=== PATIENT | female | born 1950 | race Caucasian/White ===

== ENCOUNTER 2017-09-25 07:15 | Inpatient (IN) | payer MEDICARE, OTHER ==
[~2017-09-25 07:15] MED LIST: MORPHINE SULFATE 15 MG TABLET.SA PO PRN; RINGER'S SOLUTION,LACTATED 1,000 ML IV PRN; ROPIVACAINE HCL/PF 100 MG, KETOROLAC TROMETHAMINE 30 MG, EPINEPHrine 0.2 MG in NORMAL S... IJ PRN; ceFAZolin SODIUM 1 GM VIAL IV PRN
[2017-09-25] MEDS ORDERED: RINGER'S SOLUTION,LACTATED 1,000 ML IV ONE ×4 (10:15→12:09)
[2017-09-25] MEDS: TRANEXAMIC ACID 1,000 MG in NORMAL SALINE 100 ML IV PRN ×2 (11:07→12:12)
[2017-09-25] MEDS ORDERED: PROMETHAZINE HCL 5 MG in DEXTROSE 5 % IN WATER 50 ML IV PRN ×2 (12:45)
[2017-09-25] MEDS ORDERED: diphenhydrAMINE HCL 50 MG/ML VIAL IV PRN (12:45)
[2017-09-25] MEDS ORDERED: HYDROmorphone HCL 1 MG/ML DISP.SYRIN IV PRN (12:45)
[2017-09-25] MEDS ORDERED: ZOLPIDEM TARTRATE 5 MG TABLET PO PRN (12:45)
[2017-09-25] MEDS ORDERED: MAG HYDROX/ALUMINUM HYD/SIMETH 30 ML UDC PO PRN (12:45)
--- NOTE | 2017-09-25 12:49 | POSTOP NO ---
Date of Surgery: 09/25/17 Anesthesia: Spinal, Local Patient Tolerated the Procedure: Well Post Operative Diagnosis/Procedures: Steam Pressure Chamber Operator: Jr Kikr PA-C Post-operative Diagnosis: Right hip degenerative joint disease Finding: Above Procedure: Right total hip arthroplasty Estimated Blood Loss: 100 ml Specimens: Bone for disposal
--- NOTE | 2017-09-25 12:50 | OR ---
Operative Report - Dictated Report Narrative: Date: 09/25/2017 Preoperative diagnosis: Right hip degenerative joint disease. Postoperative diagnosis: Right hip degenerative joint disease. Procedure: Right Total hip arthroplasty. Surgeon: Paresh Jo M.D. Washing Machine Repairer: Jr Kirk PA-C Anesthesia: Spinal and local periarticular joint injection. Complications: None Specimens: Bone for disposal. Estimated blood loss: 100 milliliters. Retained implants: Depuy [place] size 4 femoral stem standard offset. Size 52 millimeter ouside diameter 3-hole [place] Gription acetabular cup. 52 millimeter outside by 36 millimeter inside diameter highly cross-linked acetabular liner. 36 millimeter diameter +8.5 millimeter cobalt chromium femoral head. Cancellous 6.5mm screw 30 millimeter length Indications: Mrs. Gore is a 66-year-old female who has had long-standing right hip pain and arthrosis. This patient was followed in my clinic for period of time with significant complaints of right hip pain consistent with arthritic changes. She failed conservative measures including but not limited to activity modification, passage of time, medications, and other conservative measures. Patient wished to proceed with surgical treatment. The risks, benefits, and alternatives were discussed in clinic. The risks of , blood clots, bleeding, infection, nerve/tendon blood vessel/ injury, malposition of components, dislocation and/or instability of joint, intraoperative fracture, postoperative limited range of motion, persistent pain, failure of components, and need for additional procedures. Patient wished to proceed. Consent was obtained after answering all questions. Procedure: After marking the correct extremity on the floor, the patient was taken to the operating room. A timeout was performed. IV antibiotics consisting of Ancef were administered prior to the procedure. A spinal anesthetic was induced by anesthesia. A Wilks catheter was inserted. The patient was then transitioned to a lateral position on a well-padded pegboard. An axillary roll was placed. The head was in neutral position. The non- operative down leg was well-padded with SCD and JIE hose in place. The arms were supported and padded to protect from any undue pressure on the bony prominences and nerves. A well-padded anterior and posterior pelvic and chest posts were secured in order to maintain a stable position of the pelvis. This was placed so that the pelvis was perpendicular to the floor. The body was in line with the pelvis. Once it was felt that we had protected all the bony prominences and the patient was well secured with a safety belt as well, the leg was pre-scrubbed with alcohol, prepped and draped in a standard sterile fashion. A standard anterior lateral hip incision was marked out over the greater trochanter. Ioban drapes were then placed. The skin incision was then made. Sharp dissection with a scalpel utilizing cautery for hemostasis was carried out down to the gluteus and iliotibial band fascia. This was split in line with the skin incision. The greater trochanter bursa was excised. The anterior and posterior margins of the abductor tendon were identified. The anterior 1/2-1/3 of the tendon was tagged and reflected off the greater trochanter leaving a sleeve of tendon for repair at the completion of the case. This exposed the underlying hip joint capsule. A limb length stitch was placed in the skin and referencedd off a karena on the greater trochanter for evaluation of intraoperative limb lengths. An inverted T-type capsulotomy was made extending this up to the brim of the acetabulum. Using Homans to assist with elevation of the soft tissues off the anterior, superior, and inferior aspects of the femoral neck, the hip was then placed in a figure 4 position and the femoral head was dislocated. With the leg in an externally rotated and adducted position, the cutting flag was utilized in order to karena for a standard femoral neck cut approximately a fingerbreadth above the level of the lesser trochanter. This was done with reference to pre-operative films and overall alignment. This was done while protecting the surrounding soft tissues with Homans. The femoral head was then removed and sized for guidance on preparation of the acetabulum. It was noted that there was loss of articular cartilage on both the femoral head and weightbearing portions of the acetabulum. We then returned the leg to the table and turned our attention to the acetabulum. While protecting the surrounding soft tissues, the labrum and remaining tissue in the fovea were excised using a scalpel and cautery. A series of reamers up to size 52 millimeter were utilized to prepare the acetabulum. The final reamer had good purchase and exposed the bleeding subchondral bone. The acetabulum was then thoroughly irrigated ensuring that all bony and cartilaginous materials were removed, and the final acetabular shell was impacted into place. This was placed in approximately 45 degrees of abduction and 20 degrees of anteversion utilizing the outrigger and body axis for alignment. This had a good press fit. 1 6.5mm cancellous screw was placed in the superior posterior quadrant of the acetabulum. The shell was then thoroughly irrigated and the final polyethylene was impacted into place ensuring that it seated completely. This was then protected with a sponge while we returned our attention to the femur. With the leg in a figure 4 position, utilizing Homans for soft tissue protection , a box cutting osteotome, followed by Charnley awl, followed by serial reamers and broaches were utilized in order to prepare the femur. It was found that a size 4 broach gave good axial and rotational stability. The calcar reamer was utilized in order to clean up the cut edges. The proximal femur was visualized to ensure that there were no signs of fracture. A series of heads and necks were trialed. It was found that a standard offset neck and a + 8.5 femoral head gave good overall stability. There was minimal longitudinal instability. With the leg in the position of sleep, the femoral head was well covered. Hip range of motion was able to reach full extension and external rotation to greater than 75 degrees prior to impingement along the posterior acetabulum. The hip was able to be flexed to greater than 90 degrees with internal rotation greater than 60 degrees prior to anterior impingement. The limb lengths were near equal based on comparison to the contralateral side and the prior placed limb length stitch. At this point it was felt these were the appropriately sized femoral components as well as neck and femoral head. The trial implants were removed. The femur was thoroughly irrigated. The final implants were impacted into place, and the hip was reduced. After ensuring that there was no damage to the proximal femur , the standard periarticular joint injection of ropivacaine, Toradol, and epinephrine were injected into the joint capsule and surrounding soft tissues. Anesthesia then administered intravenous tranexamic acid. The capsule was repaired with a single interrupted #1 Vicryl. The abductor tendon was repaired to the greater trochanter utilizing #5 Ethibond through drill holes. This was oversewn with #1 Vicryl. The fascia was closed with interrupted #1 Vicryl. The wounds were thoroughly irrigated as we closed in layers. The deep and subcutaneous fat layers were closed with 0 and 3-0 Vicryl respectively. The subcutaneous tissue was closed with a running 3-0 Vicryl and the skin with running 3-0 Monocryl subcutaneous and Prineo Dermabond dressing. All sponge, needle, blade, and instrument counts were correct prior to closing the wounds. Sterile dressings consisting of 4 x 4's, and tape were applied. The patient was awoken and transferred to her hospital bed and then to the postanesthesia care unit in stable condition. Postoperative condition: The plan is to admit to the medical/surgical inpatient floor postoperatively. There will be a projected 2 to 4 day hospital stay. Postoperatively 24 hours of IV antibiotics, pain control, physical therapy, occupational therapy, and medical comanagement will be utilized. Patient will be weightbearing as tolerated with anterior hip precautions. Postoperative films will be obtained in the recovery room.
[2017-09-25] MEDS: KETOROLAC TROMETHAMINE 15 MG/ML VIAL IV SCH ×2 (14:02→18:37)
[2017-09-25] MEDS: ceFAZolin SODIUM 1 GM in DEXTROSE 5 % IN WATER 100 ML IV SCH ×4 (14:07→20:37)
[2017-09-25] MEDS: ALPRAZolam 0.5 MG TABLET PO SCH ×2 (14:07→17:34)
[2017-09-25] MEDS: RINGER'S SOLUTION,LACTATED 1,000 ML IV PRN (15:42)
[2017-09-25] MEDS: metFORMIN HCL 500 MG TABLET PO SCH (17:34)
[2017-09-25] MEDS: oxyCODONE HCL/ACETAMINOPHEN 1 TAB TABLET PO PRN ×2 (17:34→22:58)
[2017-09-25] MEDS: MORPHINE SULFATE 15 MG TABLET.SA PO SCH (20:39)
[2017-09-25] MEDS: METOPROLOL SUCCINATE 100 MG TABLET.SA PO SCH (20:40)
[2017-09-25] MEDS: CHOLECALCIFEROL 400 UNIT TABLET PO SCH (20:41)
[2017-09-25] MEDS: CALCIUM CARBONATE 500 MG TAB.CHEW PO SCH (20:41)
[2017-09-25] MEDS: busPIRone HCL 5 MG TABLET PO SCH (20:42)
[2017-09-25] MEDS: ROSUVASTATIN CALCIUM 20 MG TABLET PO SCH (20:44)
[2017-09-25] MEDS: SENNOSIDES/DOCUSATE SODIUM 1 TAB TABLET PO SCH (20:45)
[2017-09-25] MEDS: Cyclosporine [Restasis] OP SCH (20:46)
[2017-09-25] MEDS: INSULIN GLARGINE,HUM.REC.ANLOG 100 UNITS/ML VIAL SC SCH (20:46)
[2017-09-25] MEDS ORDERED: GLIMEPIRIDE 4 MG TABLET PO SCH (21:00)
[2017-09-26] MEDS: KETOROLAC TROMETHAMINE 15 MG/ML VIAL IV SCH ×4 (01:04→18:58)
[2017-09-26] MEDS: RINGER'S SOLUTION,LACTATED 1,000 ML IV PRN (01:13)
[2017-09-26] MEDS: ceFAZolin SODIUM 1 GM in DEXTROSE 5 % IN WATER 100 ML IV SCH ×2 (03:05)
[2017-09-26 05:41] LABS: Hematocrit 30.4 % (37.0-47.0); Hemoglobin 9.1 gm/dL (12.5-16.0); Mean Cell Volume 82.2 fl (78-100); Mean Corpuscular Hemoglobin 24.6 pg (27-31); Mean Corpuscular Hgb Conc 29.9 g/dl (32-36); Mean Platelet Volume 9.8 fl (6.0-9.5); Platelet Count 185 K/mm3 (150-450); Red Cell Distribution Width 17.2 % (11.5-14.0); White Blood Count 7.1 K/mm3 (4.0-10.5)
[2017-09-26 05:46] LABS: Anion Gap 9.8 mmol/L (6.8-13.8); BUN/Creatinine Ratio 18.3 (9.0-21.6); Calcium * 8.1 mg/dL (7.9-10.9); Carbon Dioxide 29.4 mmol/L (24-32.6); Estimated Creat Clear 61.8; Potassium 4.2 mmol/L (3.4-4.6)
[2017-09-26] MEDS: oxyCODONE HCL/ACETAMINOPHEN 1 TAB TABLET PO PRN ×2 (06:58→16:37)
[2017-09-26] MEDS: PANTOPRAZOLE SODIUM 40 MG TABLET.EC PO SCH (06:59)
[2017-09-26] MEDS: GLIMEPIRIDE 4 MG TABLET PO SCH ×2 (09:17→16:34)
[2017-09-26] MEDS: sitaGLIPtin PHOSPHATE 50 MG TABLET PO SCH (09:17)
[2017-09-26] MEDS: HYDROCHLOROTHIAZIDE 12.5 MG CAPSULE PO SCH (09:17)
[2017-09-26] MEDS: metFORMIN HCL 500 MG TABLET PO SCH ×2 (09:18→16:34)
[2017-09-26] MEDS: busPIRone HCL 5 MG TABLET PO SCH ×2 (09:18→20:58)
[2017-09-26] MEDS: CHOLECALCIFEROL 400 UNIT TABLET PO SCH ×2 (09:19→21:01)
[2017-09-26] MEDS: ENALAPRIL MALEATE 5 MG TABLET PO SCH (09:19)
[2017-09-26] MEDS: CALCIUM CARBONATE 500 MG TAB.CHEW PO SCH ×2 (09:20→21:01)
[2017-09-26] MEDS: Cyclosporine [Restasis] OP SCH ×2 (09:25→21:02)
[2017-09-26] MEDS: MORPHINE SULFATE 15 MG TABLET.SA PO SCH ×2 (09:27→21:08)
--- NOTE | 2017-09-26 10:00 | PN ---
Subjective - Date and Time Seen Date: 09/26/17 Time: 09:56 Subjective Narrative: Subjective: Reports no concerns. Was able to take a few steps in the room with therapy. Pain is well-controlled. Voiding without any complications. Tolerating by mouth intake. Denies any nausea or vomiting. Denies calf pain. Slept well. Physical exam: Alert and oriented to person, place and time Right lower Extremity: Palpable dorsalis pedis pulse. Sensation grossly intact to light touch. Dressings clean and dry. Able to flex and extend ankle and toes. No excessive drainage. Calf and thigh are soft and nontender. Assessment: Postop day 1 status post right total hip arthroplasty. Plan: Due to the need for pain control, post-operative limited mobility, protection of the surgical site and joint, monitoring of the wound, and the management of chronic medical conditions, she requires continued inpatient care. Continue with physical and occupational therapy weightbearing as tolerated. Anterior hip precautions Continue with anticoagulation. 24 hours postoperative prophylactic antibiotics. Pain control with goal to rely on oral medications. Continue bowel regimen. Will need 6 weeks with walker or assitive device to protect joint while ambulating during the recovery process. Discharge planning - due to her home situation as well as suspected need for additional therapy we are looking into placement at [facility]. Discontinue Wilks catheter. Repeat hemogram and BMP in a.m. in order to monitor for postoperative anemia and electrolyte imbalance. Objective - Vitals Vitals: Last Vital Signs Temp 36.0 C L 09/26/17 06:25 Pulse 65 09/26/17 09:19 Resp 20 09/26/17 06:25 BP 102/54 09/26/17 09:19 Pulse Ox 94 09/26/17 06:25 - Abnormal Lab Findings Abnormal Lab Findings: Abnormal Lab Results 09/26/17 09/26/17 Range/Units 05:10 05:10 RBC 3.70 L (4.2-5.4) M/mm3 Hgb 9.1 L (12.5-16.0) gm/dL Hct 30.4 L (37.0-47.0) % MCH 24.6 L (27-31) pg MCHC 29.9 L (32-36) g/dl RDW 17.2 H (11.5-14.0) % MPV 9.8 H (6.0-9.5) fl Random Glucose 156 H (70-110) mg/dL Cauti Physician Documentation - Urinary Catheter Management Urethral (Wilks) Urethral Indwelling: No Date of Insertion: 09/25/17 Date of Removal: 09/26/17 Time of Removal: 07:10 Assessment/Plan - Problems/Diagnosis (1) Status post total hip replacement, right Problem: Acute (2) Acute blood loss anemia Problem: Acute (3) Diabetes mellitus type 2 in nonobese Problem: Chronic (4) Anxiety Problem: Chronic (5) CAD (coronary artery disease) Problem: Chronic Qualifiers: [place] vs. transplanted heart: [place] heart (6) GERD (gastroesophageal reflux disease) Problem: Chronic Qualifiers: Esophagitis presence: without esophagitis Qualified Code(s): K21.9 - Gastro -esophageal reflux disease without esophagitis (7) Hyperlipemia Problem: Chronic Qualifiers: Hyperlipidemia type: unspecified Qualified Code(s): E78.5 - Hyperlipidemia , unspecified (8) Hypertension Problem: Chronic Qualifiers: Hypertension type: unspecified Qualified Code(s): I10 - Essential (primary ) hypertension (9) Hypothyroid Problem: Chronic Qualifiers: Hypothyroidism type: unspecified Qualified Code(s): E03.9 - Hypothyroidism , unspecified (10) History of [place] (myocardial infarction) Problem: Chronic (11) OCD (obsessive compulsive disorder) Problem: Chronic Qualifiers: Obsessive-compulsive disorder type: unspecified Qualified Code(s): F42.9 - Obsessive-compulsive disorder, unspecified
[2017-09-26] MEDS: ALPRAZolam 0.5 MG TABLET PO SCH ×3 (11:46→18:17)
[2017-09-26] MEDS: ENOXAPARIN SODIUM 40 MG/0.4 ML SYRG SC SCH (11:51)
[2017-09-26] MEDS: ONDANSETRON HCL/PF 2 MG/ML VIAL IV PRN (13:51)
[2017-09-26] MEDS: ROSUVASTATIN CALCIUM 20 MG TABLET PO SCH (20:56)
[2017-09-26] MEDS: INSULIN GLARGINE,HUM.REC.ANLOG 100 UNITS/ML VIAL SC SCH (20:57)
[2017-09-26] MEDS: SENNOSIDES/DOCUSATE SODIUM 1 TAB TABLET PO SCH (20:59)
[2017-09-26] MEDS: METOPROLOL SUCCINATE 100 MG TABLET.SA PO SCH (21:00)
[2017-09-27] MEDS: KETOROLAC TROMETHAMINE 15 MG/ML VIAL IV SCH ×2 (00:39→06:43)
[2017-09-27] MEDS: oxyCODONE HCL/ACETAMINOPHEN 1 TAB TABLET PO PRN ×2 (00:57→19:39)
[2017-09-27 06:40] LABS: Hemoglobin 9.1 gm/dL (12.5-16.0); Mean Cell Volume 81.4 fl (78-100); Mean Corpuscular Hemoglobin 23.9 pg (27-31); Mean Corpuscular Hgb Conc 29.4 g/dl (32-36); Mean Platelet Volume 9.4 fl (6.0-9.5); Platelet Count 166 K/mm3 (150-450); Red Blood Count 3.81 M/mm3 (4.2-5.4); Red Cell Distribution Width 17.2 % (11.5-14.0); White Blood Count 6.9 K/mm3 (4.0-10.5)
[2017-09-27] MEDS: ONDANSETRON HCL/PF 2 MG/ML VIAL IV PRN (06:43)
[2017-09-27] MEDS: PANTOPRAZOLE SODIUM 40 MG TABLET.EC PO SCH (06:50)
[2017-09-27] MEDS: GLIMEPIRIDE 4 MG TABLET PO SCH ×2 (06:50→18:03)
[2017-09-27 06:59] LABS: Anion Gap 9.8 mmol/L (6.8-13.8); BUN/Creatinine Ratio 14.1 (9.0-21.6); Calcium * 8.6 mg/dL (7.9-10.9); Carbon Dioxide 29.2 mmol/L (24-32.6); Estimated Creat Clear 59.6
[2017-09-27] MEDS: MAGNESIUM HYDROXIDE 30 ML UDC PO PRN (08:57)
[2017-09-27] MEDS: busPIRone HCL 5 MG TABLET PO SCH ×2 (09:59→20:15)
[2017-09-27] MEDS: metFORMIN HCL 500 MG TABLET PO SCH ×2 (09:59→18:02)
[2017-09-27] MEDS: HYDROCHLOROTHIAZIDE 12.5 MG CAPSULE PO SCH (10:00)
[2017-09-27] MEDS: CALCIUM CARBONATE 500 MG TAB.CHEW PO SCH ×2 (10:00→20:16)
[2017-09-27] MEDS: sitaGLIPtin PHOSPHATE 50 MG TABLET PO SCH (10:01)
[2017-09-27] MEDS: CHOLECALCIFEROL 400 UNIT TABLET PO SCH ×2 (10:01→20:15)
[2017-09-27] MEDS: ENALAPRIL MALEATE 5 MG TABLET PO SCH (10:01)
[2017-09-27] MEDS: MORPHINE SULFATE 15 MG TABLET.SA PO SCH ×2 (10:08→20:29)
[2017-09-27] MEDS: ALPRAZolam 0.5 MG TABLET PO SCH ×3 (10:08→18:06)
[2017-09-27] MEDS: Cyclosporine [Restasis] OP SCH ×2 (10:08→20:16)
[2017-09-27] MEDS: ENOXAPARIN SODIUM 40 MG/0.4 ML SYRG SC SCH (12:03)
--- NOTE | 2017-09-27 14:47 | PN ---
Subjective - Date and Time Seen Date: 09/27/17 Time: 14:46 Subjective Narrative: Subjective: Reports no concerns. Was able to walk in the lozoya some with therapy. Pain is well-controlled. Voiding without any complications. Tolerating by mouth intake. Denies any nausea or vomiting. Denies calf pain. Slept well. Physical exam: Alert and oriented to person, place and time Right lower Extremity: Palpable dorsalis pedis pulse. Sensation grossly intact to light touch. Dressings clean and dry. Able to flex and extend ankle and toes. No excessive drainage. Calf and thigh are soft and nontender. Assessment: Postop day 2 status post right total hip arthroplasty. Plan: Due to the need for pain control, post-operative limited mobility, protection of the surgical site and joint, monitoring of the wound, and the management of chronic medical conditions, she requires continued inpatient care. Continue with physical and occupational therapy weightbearing as tolerated. Anterior hip precautions Continue with anticoagulation. Pain control with goal to rely on oral medications. Continue bowel regimen. Will need 6 weeks with walker or assitive device to protect joint while ambulating during the recovery process. Discharge planning - due to her home situation as well as suspected need for additional therapy we are looking into placement at SNF. We are awaiting authorization and bed availability. Due to medicare rules tomorrow would be soonest. Objective - Vitals Vitals: Last Vital Signs Temp 36.7 C 09/27/17 06:41 Pulse 74 09/27/17 10:55 Resp 18 09/27/17 10:55 BP 130/49 09/27/17 10:55 Pulse Ox 100 09/27/17 10:55 - Abnormal Lab Findings Abnormal Lab Findings: Abnormal Lab Results 09/27/17 09/27/17 Range/Units 06:10 06:10 RBC 3.81 L (4.2-5.4) M/mm3 Hgb 9.1 L (12.5-16.0) gm/dL Hct 31.0 L (37.0-47.0) % MCH 23.9 L (27-31) pg MCHC 29.4 L (32-36) g/dl RDW 17.2 H (11.5-14.0) % Random Glucose 119 H (70-110) mg/dL Cauti Physician Documentation - Urinary Catheter Management Urethral (Wilks) Urethral Indwelling: No Date of Insertion: 09/25/17 Date of Removal: 09/26/17 Time of Removal: 07:10 Assessment/Plan - Problems/Diagnosis (1) Status post total hip replacement, right Problem: Acute (2) Acute blood loss anemia Problem: Acute (3) Diabetes mellitus type 2 in nonobese Problem: Chronic (4) Anxiety Problem: Chronic (5) CAD (coronary artery disease) Problem: Chronic Qualifiers: [place] vs. transplanted heart: [place] heart (6) GERD (gastroesophageal reflux disease) Problem: Chronic Qualifiers: Esophagitis presence: without esophagitis Qualified Code(s): K21.9 - Gastro -esophageal reflux disease without esophagitis (7) Hyperlipemia Problem: Chronic Qualifiers: Hyperlipidemia type: unspecified Qualified Code(s): E78.5 - Hyperlipidemia , unspecified (8) Hypertension Problem: Chronic Qualifiers: Hypertension type: unspecified Qualified Code(s): I10 - Essential (primary ) hypertension (9) Hypothyroid Problem: Chronic Qualifiers: Hypothyroidism type: unspecified Qualified Code(s): E03.9 - Hypothyroidism , unspecified (10) History of [place] (myocardial infarction) Problem: Chronic (11) OCD (obsessive compulsive disorder) Problem: Chronic Qualifiers: Obsessive-compulsive disorder type: unspecified Qualified Code(s): F42.9 - Obsessive-compulsive disorder, unspecified
[2017-09-27] MEDS: METOPROLOL SUCCINATE 100 MG TABLET.SA PO SCH (20:15)
[2017-09-27] MEDS: ROSUVASTATIN CALCIUM 20 MG TABLET PO SCH (20:15)
[2017-09-27] MEDS: SENNOSIDES/DOCUSATE SODIUM 1 TAB TABLET PO SCH (20:15)
[2017-09-27] MEDS: INSULIN GLARGINE,HUM.REC.ANLOG 100 UNITS/ML VIAL SC SCH (20:17)
[2017-09-28] MEDS: ONDANSETRON HCL/PF 2 MG/ML VIAL IV PRN (07:03)
[2017-09-28] MEDS: GLIMEPIRIDE 4 MG TABLET PO SCH ×2 (07:26→17:11)
[2017-09-28] MEDS: PANTOPRAZOLE SODIUM 40 MG TABLET.EC PO SCH (07:26)
[2017-09-28] MEDS: ALPRAZolam 0.5 MG TABLET PO SCH ×3 (09:11→17:11)
[2017-09-28] MEDS: MORPHINE SULFATE 15 MG TABLET.SA PO SCH ×2 (09:11→20:28)
[2017-09-28] MEDS: busPIRone HCL 5 MG TABLET PO SCH ×2 (09:11→20:29)
[2017-09-28] MEDS: HYDROCHLOROTHIAZIDE 12.5 MG CAPSULE PO SCH (09:12)
[2017-09-28] MEDS: ENALAPRIL MALEATE 5 MG TABLET PO SCH (09:12)
[2017-09-28] MEDS: CALCIUM CARBONATE 500 MG TAB.CHEW PO SCH ×2 (09:12→20:31)
[2017-09-28] MEDS: sitaGLIPtin PHOSPHATE 50 MG TABLET PO SCH (09:12)
[2017-09-28] MEDS: CHOLECALCIFEROL 400 UNIT TABLET PO SCH ×2 (09:13→20:31)
[2017-09-28] MEDS: metFORMIN HCL 500 MG TABLET PO SCH ×2 (09:13→17:11)
[2017-09-28] MEDS: Cyclosporine [Restasis] OP SCH ×2 (09:14→20:31)
[2017-09-28] MEDS: ENOXAPARIN SODIUM 40 MG/0.4 ML SYRG SC SCH (10:45)
[2017-09-28] MEDS: ACETAMINOPHEN 500 MG TABLET PO PRN (13:12)
[2017-09-28] MEDS: MAGNESIUM HYDROXIDE 30 ML UDC PO PRN (13:13)
--- NOTE | 2017-09-28 14:31 | PN ---
Subjective - Date and Time Seen Date: 09/28/17 Time: 14:29 Subjective Narrative: Subjective: Reports no concerns. Walked in the lozoya with therapy. Pain is well -controlled. Voiding without any complications. Tolerating by mouth intake. Denies any nausea or vomiting. Denies calf pain. Slept well. Physical exam: Alert and oriented to person, place and time Right lower Extremity: Palpable dorsalis pedis pulse. Sensation grossly intact to light touch. Dressings clean and dry. Able to flex and extend ankle and toes. No excessive drainage. Calf and thigh are soft and nontender. Assessment: Postop day 3 status post right total hip arthroplasty. Plan: Due to the need for pain control, post-operative limited mobility, protection of the surgical site and joint, monitoring of the wound, and the management of chronic medical conditions, she requires continued inpatient care. Continue with physical and occupational therapy weightbearing as tolerated. Anterior hip precautions Continue with anticoagulation. Pain control with goal to rely on oral medications. Continue bowel regimen. Will need 6 weeks with walker or assitive device to protect joint while ambulating during the recovery process. Discharge planning - due to her home situation as well as suspected need for additional therapy we are planning on placement at SNF. We are awaiting authorization and bed availability. Likely saturday Objective - Vitals Vitals: Last Vital Signs Temp 36.8 C 09/28/17 10:30 Pulse 84 09/28/17 10:30 Resp 18 09/28/17 10:30 BP 148/56 09/28/17 10:30 Pulse Ox 98 09/28/17 10:30 Cauti Physician Documentation - Urinary Catheter Management Urethral (Wilks) Urethral Indwelling: No Date of Insertion: 09/25/17 Time of Insertion: 10:45 Date of Removal: 09/26/17 Time of Removal: 07:10 Assessment/Plan - Problems/Diagnosis (1) Status post total hip replacement, right Problem: Acute (2) Acute blood loss anemia Problem: Acute (3) Diabetes mellitus type 2 in nonobese Problem: Chronic (4) Anxiety Problem: Chronic (5) CAD (coronary artery disease) Problem: Chronic Qualifiers: [place] vs. transplanted heart: [place] heart (6) GERD (gastroesophageal reflux disease) Problem: Chronic Qualifiers: Esophagitis presence: without esophagitis Qualified Code(s): K21.9 - Gastro -esophageal reflux disease without esophagitis (7) Hyperlipemia Problem: Chronic Qualifiers: Hyperlipidemia type: unspecified Qualified Code(s): E78.5 - Hyperlipidemia , unspecified (8) Hypertension Problem: Chronic Qualifiers: Hypertension type: unspecified Qualified Code(s): I10 - Essential (primary ) hypertension (9) Hypothyroid Problem: Chronic Qualifiers: Hypothyroidism type: unspecified Qualified Code(s): E03.9 - Hypothyroidism , unspecified (10) History of [place] (myocardial infarction) Problem: Chronic (11) OCD (obsessive compulsive disorder) Problem: Chronic Qualifiers: Obsessive-compulsive disorder type: unspecified Qualified Code(s): F42.9 - Obsessive-compulsive disorder, unspecified
[2017-09-28] MEDS: ROSUVASTATIN CALCIUM 20 MG TABLET PO SCH (20:28)
[2017-09-28] MEDS: SENNOSIDES/DOCUSATE SODIUM 1 TAB TABLET PO SCH (20:29)
[2017-09-28] MEDS: METOPROLOL SUCCINATE 100 MG TABLET.SA PO SCH (20:29)
[2017-09-28] MEDS: INSULIN GLARGINE,HUM.REC.ANLOG 100 UNITS/ML VIAL SC SCH (20:33)
[2017-09-29] MEDS: PANTOPRAZOLE SODIUM 40 MG TABLET.EC PO SCH (07:23)
[2017-09-29] MEDS: GLIMEPIRIDE 4 MG TABLET PO SCH ×2 (07:23→17:18)
[2017-09-29] MEDS: ENALAPRIL MALEATE 5 MG TABLET PO SCH (08:53)
[2017-09-29] MEDS: ALPRAZolam 0.5 MG TABLET PO SCH ×3 (08:53→17:18)
[2017-09-29] MEDS: sitaGLIPtin PHOSPHATE 50 MG TABLET PO SCH (08:53)
[2017-09-29] MEDS: metFORMIN HCL 500 MG TABLET PO SCH ×2 (08:53→17:18)
[2017-09-29] MEDS: CHOLECALCIFEROL 400 UNIT TABLET PO SCH ×2 (08:53→20:57)
[2017-09-29] MEDS: HYDROCHLOROTHIAZIDE 12.5 MG CAPSULE PO SCH (08:54)
[2017-09-29] MEDS: CALCIUM CARBONATE 500 MG TAB.CHEW PO SCH ×2 (08:54→20:59)
[2017-09-29] MEDS: busPIRone HCL 5 MG TABLET PO SCH ×2 (08:58→20:57)
[2017-09-29] MEDS: MORPHINE SULFATE 15 MG TABLET.SA PO SCH ×2 (08:58→20:59)
[2017-09-29] MEDS: Cyclosporine [Restasis] OP SCH ×2 (08:59→20:59)
[2017-09-29] MEDS: ENOXAPARIN SODIUM 40 MG/0.4 ML SYRG SC SCH (12:49)
--- NOTE | 2017-09-29 16:39 | PN ---
Subjective - Date and Time Seen Date: 09/29/17 Time: 16:38 Subjective Narrative: Subjective: Reports no concerns. Walked in the lozoya with therapy. Pain is well -controlled. Awaiting transfer tomorrow. Physical exam: Alert and oriented to person, place and time Right lower Extremity: Palpable dorsalis pedis pulse. Sensation grossly intact to light touch. Wound benign. No excessive drainage. Calf and thigh are soft and nontender. Assessment: Postop day 4 status post right total hip arthroplasty. Plan: Due to the need for pain control, post-operative limited mobility, protection of the surgical site and joint, monitoring of the wound, and the management of chronic medical conditions, she requires continued inpatient care. Continue with physical and occupational therapy weightbearing as tolerated. Anterior hip precautions Continue with anticoagulation. Pain control with goal to rely on oral medications. Continue bowel regimen. Will need 6 weeks with walker or assitive device to protect joint while ambulating during the recovery process. Discharge planning - due to her home situation as well as suspected need for additional therapy we are planning on placement at SNF. We are awaiting authorization and bed availability. Plan tomorrow. Objective - Vitals Vitals: Last Vital Signs Temp 37.3 C 09/29/17 14:57 Pulse 84 09/29/17 14:57 Resp 20 09/29/17 14:57 BP 113/54 09/29/17 14:57 Pulse Ox 98 09/29/17 14:57 Cauti Physician Documentation - Urinary Catheter Management Urethral (Wilks) Urethral Indwelling: No Date of Insertion: 09/25/17 Time of Insertion: 10:45 Date of Removal: 09/26/17 Time of Removal: 07:10 Assessment/Plan - Problems/Diagnosis (1) Status post total hip replacement, right Problem: Acute (2) Acute blood loss anemia Problem: Acute (3) Diabetes mellitus type 2 in nonobese Problem: Chronic (4) Anxiety Problem: Chronic (5) CAD (coronary artery disease) Problem: Chronic Qualifiers: [place] vs. transplanted heart: [place] heart (6) GERD (gastroesophageal reflux disease) Problem: Chronic Qualifiers: Esophagitis presence: without esophagitis Qualified Code(s): K21.9 - Gastro -esophageal reflux disease without esophagitis (7) Hyperlipemia Problem: Chronic Qualifiers: Hyperlipidemia type: unspecified Qualified Code(s): E78.5 - Hyperlipidemia , unspecified (8) Hypertension Problem: Chronic Qualifiers: Hypertension type: unspecified Qualified Code(s): I10 - Essential (primary ) hypertension (9) Hypothyroid Problem: Chronic Qualifiers: Hypothyroidism type: unspecified Qualified Code(s): E03.9 - Hypothyroidism , unspecified (10) History of [place] (myocardial infarction) Problem: Chronic (11) OCD (obsessive compulsive disorder) Problem: Chronic Qualifiers: Obsessive-compulsive disorder type: unspecified Qualified Code(s): F42.9 - Obsessive-compulsive disorder, unspecified
[2017-09-29] MEDS: MAGNESIUM HYDROXIDE 30 ML UDC PO PRN (17:18)
[2017-09-29] MEDS: ONDANSETRON HCL/PF 2 MG/ML VIAL IV PRN (18:44)
[2017-09-29] MEDS: ROSUVASTATIN CALCIUM 20 MG TABLET PO SCH (20:57)
[2017-09-29] MEDS: METOPROLOL SUCCINATE 100 MG TABLET.SA PO SCH (20:58)
[2017-09-29] MEDS: SENNOSIDES/DOCUSATE SODIUM 1 TAB TABLET PO SCH (20:58)
[2017-09-29] MEDS: INSULIN GLARGINE,HUM.REC.ANLOG 100 UNITS/ML VIAL SC SCH (21:02)
[2017-09-29] MEDS: ACETAMINOPHEN 500 MG TABLET PO PRN ×2 (23:02)
[2017-09-30 06:53] VITALS: BP 120/68
[2017-09-30] MEDS: PANTOPRAZOLE SODIUM 40 MG TABLET.EC PO SCH (07:24)
[2017-09-30] MEDS: GLIMEPIRIDE 4 MG TABLET PO SCH (07:24)
[2017-09-30] MEDS: busPIRone HCL 5 MG TABLET PO SCH (08:48)
[2017-09-30] MEDS: Cyclosporine [Restasis] OP SCH (08:49)
[2017-09-30] MEDS: metFORMIN HCL 500 MG TABLET PO SCH (08:49)
[2017-09-30] MEDS: ENALAPRIL MALEATE 5 MG TABLET PO SCH (08:50)
[2017-09-30] MEDS: CALCIUM CARBONATE 500 MG TAB.CHEW PO SCH (08:50)
[2017-09-30] MEDS: HYDROCHLOROTHIAZIDE 12.5 MG CAPSULE PO SCH (08:50)
[2017-09-30] MEDS: CHOLECALCIFEROL 400 UNIT TABLET PO SCH (08:50)
[2017-09-30] MEDS: MORPHINE SULFATE 15 MG TABLET.SA PO SCH (08:50)
[2017-09-30] MEDS: sitaGLIPtin PHOSPHATE 50 MG TABLET PO SCH (08:50)
[2017-09-30] MEDS: ALPRAZolam 0.5 MG TABLET PO SCH (08:50)
--- NOTE | 2017-09-30 09:57 | DS ---
(1) Status post total hip replacement, right Problem: Acute (2) Acute blood loss anemia Problem: Acute (3) Diabetes mellitus type 2 in nonobese Problem: Chronic (4) Anxiety Problem: Chronic (5) CAD (coronary artery disease) Problem: Chronic Qualifiers: [place] vs. transplanted heart: [place] heart (6) GERD (gastroesophageal reflux disease) Problem: Chronic Qualifiers: Esophagitis presence: without esophagitis Qualified Code(s): K21.9 - Gastro -esophageal reflux disease without esophagitis (7) Hyperlipemia Problem: Chronic Qualifiers: Hyperlipidemia type: unspecified Qualified Code(s): E78.5 - Hyperlipidemia , unspecified (8) Hypertension Problem: Chronic Qualifiers: Hypertension type: unspecified Qualified Code(s): I10 - Essential (primary ) hypertension (9) Hypothyroid Problem: Chronic Qualifiers: Hypothyroidism type: unspecified Qualified Code(s): E03.9 - Hypothyroidism , unspecified (10) History of AK (myocardial infarction) Problem: Chronic (11) OCD (obsessive compulsive disorder) Problem: Chronic Qualifiers: Obsessive-compulsive disorder type: unspecified Qualified Code(s): F42.9 - Obsessive-compulsive disorder, unspecified Description of Stay: Mrs. Gore was admitted to the floor after undergoing right total hip arthroplasty. Tolerated this well. Was admitted to the floor postoperatively for 24 hours of IV antibiotics, pain control, medical comanagement, and occupational and physical therapy. OT and PT were consulted to assist with activities of daily living and ambulation. Was made weightbearing as tolerated with anterior hip precautions. Pain was initially controlled with IV regimen. This was transitioned to oral once tolerating a by mouth intake. Was resumed on home diet and medications. Had a Wilks catheter inserted and the operating room which was discontinued on postoperative day 1. Lovenox SCD and JIE hose were utilized for DVT prophylaxis. Vital signs remained stable to the hospital course. Serial labs were obtained which showed a final hemoglobin of 9.1 grams. BMP was reviewed and was stable. Physical examination throughout the hospital course showed an extremity that had sensation that was intact to light touch, palpable pulses, a benign wound, motor intact to the toes, ankle, and knee. She was somewhat slow to progress with therapy and her social situation as well as her medical conditions blood to the fact that she will need additional therapy prior to returning home. She is being transferred to [facility] for additional therapy. Instructions: Continue with weightbearing as tolerated and anterior hip precautions. It is okay to shower and get the wound wet as long as there is no drainage from the wound. Do not bathe or soak the wound. If there is any drainage from the wound keep the wound clean and dry and cover with dry gauze and tape. Change every 2-3 days as needed if there is any drainage. Cover wound while showering if there is any drainage. Continue with physical therapy. Resume home diet. Report any fever over 101.5 Fahrenheit, uncontrolled pain, increased drainage, foul odor of drainage, new or increased calf pain or shortness of breath, or any other significant complaints. A 325mg dialy aspirin will be started after finishing anticoagulation if not allergic. Continue with JIE hose on the operative extremity until instructed otherwise. No driving until instructed otherwise. Follow up in approximately 10-14 days. Procedures Performed: see notes below List Procedures: Right total hip arthroplasty Discharge Disposition: [facility] Disposition: Other health care facility Condition: Good Discharge Activity: Weight bearing, Other - anterior hip precautions Discharge Diet: Consistent carbs Discharge Level of Care:: SNF - Half-Way Half-Way Therapy: Physicial Therapy Referrals: Yin Nunez CNP [Primary Care Provider] - Additional Patient Instructions (free text): [facility] at [facility] in [place], [place]. Follow up with Dr. Jo on October at 1:00 pm. Prescriptions (Any new or edited meds): Enoxaparin Sodium [Lovenox] 40 mg SC Q24H #5 disp.syrin Morphine Sulfate [Ms Contin] 15 mg PO Q12H #20 tablet.sa oxyCODONE HCL/ACETAMINOPHEN [Percocet 5 MG/325 MG] 2 tab PO Q4H PRN #90 tablet PRN Reason: Moderate Pain Complete Home Medications List: Complete Home Medication List: Benazepril HCl [Lotensin] 10 mg PO DAILY 12/30/13 Glimepiride [Amaryl] 4 mg PO BID 12/30/13 Hydrochlorothiazide [Hydrodiuril] 12.5 mg PO DAILY 12/30/13 metFORMIN HCL [Glucophage] 1,000 mg PO BIDWM 12/30/13 ALPRAZolam [Xanax] 0.5 mg PO TID 09/11/17 Blood-Glucose Meter [Blood Glucose Monitoring] 1 each MC TID 09/11/17 Buspirone HCl 15 mg PO BID 09/11/17 Calcium Carbonate 600 mg PO BID 09/11/17 Cholecalciferol (Vitamin D3) [Vitamin D3] 400 unit PO BID 09/11/17 Cyclosporine [Restasis] 1 each OP BID 09/11/17 Insulin Glargine,Hum.rec.anlog [Lantus Solostar] 25 unit SQ HS 09/11/17 Metoprolol Succinate [Toprol Xl] 100 mg PO HS 09/11/17 Omeprazole [Prilosec] 40 mg PO DAILY 09/11/17 Rosuvastatin Calcium [Crestor] 40 mg PO HS 09/11/17 metFORMIN HCL [Glucophage] 250 mg PO BIDWM 09/11/17 sitaGLIPtin PHOSPHATE [Januvia] 50 mg PO DAILY 09/11/17 Enoxaparin Sodium [Lovenox] 40 mg SC Q24H #5 disp.syrin 09/30/17 Morphine Sulfate [Ms Contin] 15 mg PO Q12H #20 tablet.sa 09/30/17 Sennosides/Docusate Sodium [Senokot-S] 2 tab PO HS tablet 09/30/17 Sertraline HCl [Zoloft] 100 mg PO DAILY 09/30/17 oxyCODONE HCL/ACETAMINOPHEN [Percocet 5 MG/325 MG] 2 tab PO Q4H PRN #90 tablet 09/30/17 Amb Orders for Discharge: PT Evaluation and Treatment Facility: [facility], Location: Rehabilitation Services
[2017-09-30] MEDS: ENOXAPARIN SODIUM 40 MG/0.4 ML SYRG SC SCH (11:04)
== END 2017-09-30 12:30 | DRG 470 ==
LOC: MS 07:15
PROVIDERS: ADMIT Orthopaedic Surgery; ATTEND Orthopaedic Surgery
PROC: 0SR90JZ Replacement of Right Hip Joint with Synthetic Substitute, Open Approach (ICD-10-PCS; principal; 2017-09-25 11:20)
DX: M16.11 Unilateral primary osteoarthritis, right hip (principal); D62 Acute posthemorrhagic anemia; E11.9 Type 2 diabetes mellitus without complications; F41.8 Other specified anxiety disorders; F43.23 Adjustment disorder with mixed anxiety and depressed mood; I25.10 Atherosclerotic heart disease of native coronary artery without angina pectoris; I10 Essential (primary) hypertension; E78.5 Hyperlipidemia, unspecified; E03.9 Hypothyroidism, unspecified; K21.9 Gastro-esophageal reflux disease without esophagitis; F42.9 Obsessive-compulsive disorder, unspecified; I25.2 Old myocardial infarction; Z95.1 Presence of aortocoronary bypass graft; Z79.82 Long term (current) use of aspirin
CPT/HCPCS: 27130; 36415; 73502; 80048; 85027; 97110; 97116; 97162; 97165; J2405